=== PATIENT | male | born 1940 | race Caucasian/White ===

== ENCOUNTER 2018-01-07 10:55 | Inpatient (IN) ==
[2018-01-07 11:56] LABS: Basophils # 0.1 10*3/uL (0.0-0.2); Basophils % 0.4 % (0.0-0.8); Eosinophils % 0.2 % (0.00-10.9); Hematocrit 40.5 VOL% (42.0-52.0); Hemoglobin 13.5 GM/DL (14.0-18.0); Immature Granulocytes % 4.6 %; Immature Granulocytes Absolute 0.55 #; Lymphocytes # 0.5 10*3/uL (1.4-4.0); Lymphocytes % 4.1 % (21.2-54.2); Mean Corpuscular HGB Conc 33.3 GM/DL (32-36); Mean Corpuscular Hemoglobin 32 PG (27-34); Mean Corpuscular Volume 95.1 FL (87-102); Mean Platelet Volume 10.3 FL (9.6-12.0); Monocytes # 0.9 10*3/uL (0.11-0.8); Monocytes % 7.4 % (1.7-12.7); Neutrophils # 10.1 10*3/uL (1.4-7.4); Neutrophils % 83.3 % (38.7-73.9); Platelet Count 139 T/CUMM (130-400); Red Blood Count 4.26 MC/CUMM (3.8-5.5); Red Cell Distribution Width 14.1 % (9.3-17.3); White Blood Count 12.1 T/CUMM (4-12)
[2018-01-07 12:37] LABS: Calcium 8.4 MG/DL (8.5-10.1); Potassium 3.4 MMOL/L (3.5-5.1); Uric Acid 8.5 MG/DL (3.5-7.2)
[2018-01-07 12:43] LABS: Band Neutrophils 1 % (0-10); Hypochromasia 1+; Lymphocytes 3 % (20-55); Platelet Estimate Adequate; Segmented Neutrophils 91 % (50-85); Total Cells Counted 100
[2018-01-07] MEDS ORDERED: ONDANSETRON 4 MG/2 ML VIAL IV PRN (12:56)
[2018-01-07] MEDS ORDERED: ACETAMINOPHEN 325 MG TABLET PO PRN (12:56)
[2018-01-07] MEDS ORDERED: NITROGLYCERIN SL 0.4 MG TABLET SL PRN (13:02)
[2018-01-07] MEDS ORDERED: VANCOMYCIN INJ 1,000 MG in SODIUM CHLORIDE 0.9% 250 ML IV STA (13:05)
[2018-01-07] MEDS: ENOXAPARIN 40 MG/0.4 ML SYRINGE SUBCUT SCH (13:56)
[2018-01-07] MEDS: LACTATED RINGERS 1,000 ML IV SCH ×2 (14:15→16:03)
[2018-01-07] MEDS ORDERED: SEVOFLURANE 1 UNIT/15 MINUTE INH ONE (15:23)
[2018-01-07] MEDS ORDERED: DEXAMETHASONE 10 MG/1 ML VIAL ONE (15:23)
[2018-01-07] MEDS ORDERED: fentaNYL 100 MCG/2 ML VIAL ONE (15:23)
[2018-01-07] MEDS ORDERED: NEOSTIGMINE 10 MG/10 ML VIAL ONE (15:24)
[2018-01-07] MEDS ORDERED: GLYCOPYRROLATE 0.4 MG/2 ML VIAL ONE (15:24)
[2018-01-07] MEDS ORDERED: ONDANSETRON 4 MG/2 ML VIAL ONE (15:24)
[2018-01-07] MEDS ORDERED: KETOROLAC 30 MG/1 ML VIAL ONE (15:24)
[2018-01-07] MEDS ORDERED: PHENYLEPHRINE 1 MG/10 ML SYRINGE IV ONE (15:24)
[2018-01-07] MEDS ORDERED: LACTATED RINGERS 1,000 ML IV ONE (15:24)
[2018-01-07] MEDS ORDERED: ROCURONIUM 100 MG/10 ML VIAL IV ONE (15:24)
[2018-01-07] MEDS ORDERED: PROPOFOL 200 MG/20 ML VIAL IV ONE (15:25)
[2018-01-07] MEDS: predniSONE 10 MG TABLET PO SCH (20:28)
[2018-01-07] MEDS: TAMSULOSIN 0.4 MG CAPSULE PO SCH (20:28)
[2018-01-07] MEDS: PRAVASTATIN 20 MG TABLET PO SCH (20:29)
[2018-01-07] MEDS: POTASSIUM CHLORIDE 10 MEQ TABLET PO SCH (20:29)
[2018-01-07] MEDS: LOSARTAN 50 MG TABLET PO SCH (20:29)
[2018-01-07] MEDS: METOPROLOL SUCCINATE XL 25 MG TABLET PO SCH (20:30)
[2018-01-07] MEDS: amLODIPine 2.5 MG TABLET PO SCH (20:30)
[2018-01-07] MEDS: DOCUSATE SODIUM 100 MG CAPSULE PO SCH (20:30)
[2018-01-07] MEDS: ISOSORBIDE MONONITRATE 30 MG TABLET PO SCH (20:31)
[2018-01-08] MEDS: SODIUM CHLORIDE 0.45% 1,000 ML IV SCH ×2 (01:07→18:42)
[2018-01-08] MEDS: VANCOMYCIN INJ 1,500 MG in SODIUM CHLORIDE 0.9% 500 ML IV SCH ×2 (01:30→13:37)
[2018-01-08 06:10] LABS: Basophils % 0.3 % (0.0-0.8); Hemoglobin 11.9 GM/DL (14.0-18.0); Immature Granulocytes Absolute 0.33 #; Lymphocytes # 0.4 10*3/uL (1.4-4.0); Lymphocytes % 3.8 % (21.2-54.2); Mean Corpuscular Hemoglobin 32 PG (27-34); Mean Corpuscular Volume 93.1 FL (87-102); Mean Platelet Volume 11.1 FL (9.6-12.0); Monocytes # 0.5 10*3/uL (0.11-0.8); Monocytes % 4.6 % (1.7-12.7); Neutrophils # 9.6 10*3/uL (1.4-7.4); Neutrophils % 88.3 % (38.7-73.9); Platelet Count 138 T/CUMM (130-400); Red Blood Count 3.76 MC/CUMM (3.8-5.5); Red Cell Distribution Width 14.2 % (9.3-17.3); White Blood Count 10.9 T/CUMM (4-12)
[2018-01-08] MEDS: SPIRONOLACTONE 25 MG TABLET PO SCH (10:11)
[2018-01-08] MEDS: MONTELUKAST 10 MG TABLET PO SCH (10:11)
[2018-01-08] MEDS: ASPIRIN EC 81 MG TABLET PO SCH (10:11)
[2018-01-08] MEDS: BUMETANIDE 1 MG TABLET PO SCH (10:11)
[2018-01-08] MEDS: DOCUSATE SODIUM 100 MG CAPSULE PO SCH ×2 (10:11→21:27)
[2018-01-08] MEDS: POTASSIUM CHLORIDE 10 MEQ TABLET PO SCH ×2 (10:11→21:27)
[2018-01-08] MEDS: PANTOPRAZOLE 40 MG TABLET PO SCH (10:11)
[2018-01-08] MEDS: ENOXAPARIN 40 MG/0.4 ML SYRINGE SUBCUT SCH (13:36)
[2018-01-08] MEDS: METOPROLOL SUCCINATE XL 25 MG TABLET PO SCH (21:26)
[2018-01-08] MEDS: amLODIPine 2.5 MG TABLET PO SCH (21:27)
[2018-01-08] MEDS: predniSONE 10 MG TABLET PO SCH (21:27)
[2018-01-08] MEDS: ZALEPLON 5 MG CAPSULE PO PRN (21:27)
[2018-01-08] MEDS: TAMSULOSIN 0.4 MG CAPSULE PO SCH (21:27)
[2018-01-08] MEDS: PRAVASTATIN 20 MG TABLET PO SCH (21:27)
[2018-01-08] MEDS: LOSARTAN 50 MG TABLET PO SCH (21:27)
[2018-01-08] MEDS: ISOSORBIDE MONONITRATE 30 MG TABLET PO SCH (21:27)
[2018-01-09] MEDS: VANCOMYCIN INJ 1,500 MG in SODIUM CHLORIDE 0.9% 500 ML IV SCH ×2 (02:10→14:17)
[2018-01-09 05:47] LABS: Basophils % 0.2 % (0.0-0.8); Eosinophils % 0.2 % (0.00-10.9); Hematocrit 34.8 VOL% (42.0-52.0); Hemoglobin 11.5 GM/DL (14.0-18.0); Immature Granulocytes % 3.2 %; Immature Granulocytes Absolute 0.37 #; Lymphocytes # 0.9 10*3/uL (1.4-4.0); Lymphocytes % 7.6 % (21.2-54.2); Mean Corpuscular Hemoglobin 32 PG (27-34); Mean Corpuscular Volume 96.1 FL (87-102); Monocytes # 0.9 10*3/uL (0.11-0.8); Monocytes % 7.5 % (1.7-12.7); Neutrophils # 9.3 10*3/uL (1.4-7.4); Neutrophils % 81.3 % (38.7-73.9); Platelet Count 119 T/CUMM (130-400); Red Blood Count 3.62 MC/CUMM (3.8-5.5); Red Cell Distribution Width 13.9 % (9.3-17.3); White Blood Count 11.4 T/CUMM (4-12)
[2018-01-09 06:07] LABS: Albumin 2.7 G/DL (3.4-5.0); Bilirubin,Total 1.1 MG/DL (0.2-1.0); Osmolality,Calculated 281.7 MOS/KG (273-304); Potassium 4.4 MMOL/L (3.5-5.1); Total Protein 5.5 G/DL (6.4-8.3)
[2018-01-09] MEDS: SODIUM CHLORIDE 0.45% 1,000 ML IV SCH ×2 (08:05→14:23)
[2018-01-09] MEDS: SPIRONOLACTONE 25 MG TABLET PO SCH (09:58)
[2018-01-09] MEDS: ASPIRIN EC 81 MG TABLET PO SCH (09:58)
[2018-01-09] MEDS: POTASSIUM CHLORIDE 10 MEQ TABLET PO SCH ×2 (09:58→21:28)
[2018-01-09] MEDS: PANTOPRAZOLE 40 MG TABLET PO SCH (09:58)
[2018-01-09] MEDS: MONTELUKAST 10 MG TABLET PO SCH (09:58)
[2018-01-09] MEDS: BUMETANIDE 1 MG TABLET PO SCH (09:58)
[2018-01-09] MEDS: DOCUSATE SODIUM 100 MG CAPSULE PO SCH ×2 (09:58→21:25)
[2018-01-09] MEDS ORDERED: VANCOMYCIN INJ 1,500 MG in SODIUM CHLORIDE 0.9% 500 ML IV SCH (20:00)
[2018-01-09] MEDS: ENOXAPARIN 40 MG/0.4 ML SYRINGE SUBCUT SCH (21:24)
[2018-01-09] MEDS: METOPROLOL SUCCINATE XL 25 MG TABLET PO SCH (21:25)
[2018-01-09] MEDS: amLODIPine 2.5 MG TABLET PO SCH (21:25)
[2018-01-09] MEDS: ISOSORBIDE MONONITRATE 30 MG TABLET PO SCH (21:25)
[2018-01-09] MEDS: predniSONE 10 MG TABLET PO SCH (21:25)
[2018-01-09] MEDS: TAMSULOSIN 0.4 MG CAPSULE PO SCH (21:25)
[2018-01-09] MEDS: PRAVASTATIN 20 MG TABLET PO SCH (21:25)
[2018-01-09] MEDS: LOSARTAN 50 MG TABLET PO SCH (21:28)
[2018-01-09] MEDS: ZALEPLON 5 MG CAPSULE PO PRN (21:32)
[2018-01-10] MEDS: SODIUM CHLORIDE 0.45% 1,000 ML IV SCH (06:15)
[2018-01-10 08:12] VITALS: BP 114/73
[2018-01-10] MEDS: DOCUSATE SODIUM 100 MG CAPSULE PO SCH (08:31)
[2018-01-10] MEDS: PANTOPRAZOLE 40 MG TABLET PO SCH (08:31)
[2018-01-10] MEDS: MONTELUKAST 10 MG TABLET PO SCH (08:31)
[2018-01-10] MEDS: SPIRONOLACTONE 25 MG TABLET PO SCH (08:32)
[2018-01-10] MEDS: ASPIRIN EC 81 MG TABLET PO SCH (08:32)
[2018-01-10] MEDS: POTASSIUM CHLORIDE 10 MEQ TABLET PO SCH (08:32)
[2018-01-10] MEDS: BUMETANIDE 1 MG TABLET PO SCH (08:33)
[2018-01-10 09:20] LABS: Apearance,Urine CLEAR (Clear); Bilirubin,Urine Negative (Negative); Blood, Urine Negative (Negative); Glucose,Urine (UA) Negative (Negative); Ketones,Urine Negative (Negative); Nitrite,Urine Negative (Negative); Protein,Urine Negative; Urine Color Yellow (Yellow); Urine Specific Gravity 1.013 (1.001-1.035); Urine Urobilinogen < 2.0 EU/DL (0.2-1.0); WBC,Urine <1 /HPF (0-6)
== END 2018-01-10 09:45 | disposition home or self-care (01) | DRG 514 ==
LOC: N.ED 10:55 → N.EDINP 12:56 → N.2E 15:50
PROVIDERS: ADMIT Family Medicine; ATTEND Family Medicine

== ENCOUNTER 2018-02-17 08:37 | Inpatient (IN) ==
[2018-02-17 09:56] LABS: Basophils # 0.1 10*3/uL (0.0-0.2); Basophils % 0.5 % (0.0-0.8); Eosinophils # 0.1 10*3/uL (0.0-0.87); Eosinophils % 0.6 % (0.00-10.9); Hematocrit 39.4 VOL% (42.0-52.0); Hemoglobin 13.2 GM/DL (14.0-18.0); Immature Granulocytes % 2.9 %; Lymphocytes # 0.5 10*3/uL (1.4-4.0); Lymphocytes % 4.8 % (21.2-54.2); Mean Corpuscular HGB Conc 33.5 GM/DL (32-36); Mean Corpuscular Hemoglobin 31 PG (27-34); Mean Corpuscular Volume 93.8 FL (87-102); Mean Platelet Volume 10.3 FL (9.6-12.0); Monocytes # 0.7 10*3/uL (0.11-0.8); Monocytes % 6.3 % (1.7-12.7); Neutrophils # 8.9 10*3/uL (1.4-7.4); Neutrophils % 84.9 % (38.7-73.9); Platelet Count 111 T/CUMM (130-400); Red Cell Distribution Width 15.2 % (9.3-17.3); White Blood Count 10.5 T/CUMM (4-12)
[2018-02-17 10:15] LABS: Band Neutrophils 3 % (0-10); Hypochromasia 1+; Lymphocytes 7 % (20-55); Platelet Estimate Decreased; Segmented Neutrophils 82 % (50-85); Total Cells Counted 100
[2018-02-17 10:33] LABS: Alanine Aminotransferase 19 U/L (16-61); Albumin 3.3 G/DL (3.4-5.0); Alkaline Phosphatase 52 U/L (45-117); Aspartate Amino Transferase 11 U/L (0-37); Blood Urea Nitrogen 21 MG/DL (7-18); Calcium 8.5 MG/DL (8.5-10.1); Glucose 129 MG/DL (74-106); Potassium 3.4 MMOL/L (3.5-5.1); Sodium 136 MMOL/L (136-145); Total Protein 6.5 G/DL (6.4-8.3)
[2018-02-17 10:36] LABS: Lactic Acid 2.3 MMOL/L (0.4-2.0)
[2018-02-17] MEDS ORDERED: oxyCODONE/ACETAMINOPHEN 5-325 MG TABLET PO STA (10:43)
[2018-02-17] MEDS ORDERED: ACETAMINOPHEN 325 MG TABLET PO PRN (11:07)
[2018-02-17] MEDS ORDERED: VANCOMYCIN INJ 1,500 MG in SODIUM CHLORIDE 0.9% 500 ML IV STA (11:07)
[2018-02-17] MEDS ORDERED: DEXTROSE 50% 25 GM/50 ML VIAL IV PRN (11:07)
[2018-02-17] MEDS ORDERED: GLUCAGON 1 MG VIAL IM PRN (11:07)
[2018-02-17 11:09] LABS: Sedimentation Rate-Westergren 46 MM/HR (0-20)
[2018-02-17] MEDS ORDERED: VANCOMYCIN 1,000 MG VIAL ONE (11:17)
[2018-02-17] MEDS ORDERED: NITROGLYCERIN SL 0.4 MG TABLET SL PRN (14:38)
[2018-02-17] MEDS: SODIUM CHLORIDE 0.45% 1,000 ML IV SCH ×2 (15:18→20:28)
[2018-02-17] MEDS: oxyCODONE/ACETAMINOPHEN 5-325 MG TABLET PO PRN (15:23)
[2018-02-17] MEDS: ONDANSETRON 4 MG/2 ML VIAL IV PRN (15:24)
[2018-02-17 16:27] LABS: Lactic Acid 2.3 MMOL/L (0.4-2.0)
[2018-02-17] MEDS: predniSONE 10 MG TABLET PO SCH (20:27)
[2018-02-17] MEDS: amLODIPine 2.5 MG TABLET PO SCH (20:28)
[2018-02-17] MEDS: ENOXAPARIN 40 MG/0.4 ML SYRINGE SUBCUT SCH (20:28)
[2018-02-17] MEDS: LOSARTAN 50 MG TABLET PO SCH (20:28)
[2018-02-17] MEDS: METOPROLOL SUCCINATE XL 25 MG TABLET PO SCH (20:28)
[2018-02-17] MEDS: ISOSORBIDE MONONITRATE 30 MG TABLET PO SCH (20:28)
[2018-02-17] MEDS: PRAVASTATIN 20 MG TABLET PO SCH (20:28)
[2018-02-17] MEDS: TAMSULOSIN 0.4 MG CAPSULE PO SCH (20:28)
[2018-02-17] MEDS: DOCUSATE SODIUM 100 MG CAPSULE PO SCH (20:28)
[2018-02-17] MEDS: POTASSIUM CHLORIDE 20 MEQ PACK PO SCH (20:28)
[2018-02-18] MEDS: SODIUM CHLORIDE 0.45% 1,000 ML IV SCH ×2 (07:16→19:00)
[2018-02-18 07:49] LABS: Calcium 7.8 MG/DL (8.5-10.1); Osmolality,Calculated 274.1 MOS/KG (273-304); Potassium 3.9 MMOL/L (3.5-5.1)
[2018-02-18] MEDS: ASPIRIN EC 81 MG TABLET PO SCH (08:51)
[2018-02-18] MEDS: BUMETANIDE 1 MG TABLET PO SCH (08:51)
[2018-02-18] MEDS: POTASSIUM CHLORIDE 20 MEQ PACK PO SCH ×2 (08:51→20:24)
[2018-02-18] MEDS: PANTOPRAZOLE 40 MG TABLET PO SCH (08:51)
[2018-02-18] MEDS: MONTELUKAST 10 MG TABLET PO SCH (08:51)
[2018-02-18] MEDS: SPIRONOLACTONE 25 MG TABLET PO SCH (08:51)
[2018-02-18] MEDS: DOCUSATE SODIUM 100 MG CAPSULE PO SCH ×2 (08:51→20:24)
[2018-02-18] MEDS ORDERED: LOSARTAN 50 MG TABLET PO SCH (09:00)
[2018-02-18] MEDS: VANCOMYCIN INJ 1,500 MG in SODIUM CHLORIDE 0.9% 500 ML IV SCH (11:40)
[2018-02-18] MEDS ORDERED: ACETAMINOPHEN/CODEINE 300-30 MG TABLET PO PRN (13:05)
[2018-02-18] MEDS: GENTAMICIN INJ 140 MG in SODIUM CHLORIDE 0.9% 100 ML IV SCH (13:51)
[2018-02-18] MEDS: ENOXAPARIN 40 MG/0.4 ML SYRINGE SUBCUT SCH (20:24)
[2018-02-18] MEDS: METOPROLOL SUCCINATE XL 25 MG TABLET PO SCH (20:24)
[2018-02-18] MEDS: amLODIPine 2.5 MG TABLET PO SCH (20:24)
[2018-02-18] MEDS: ISOSORBIDE MONONITRATE 30 MG TABLET PO SCH (20:24)
[2018-02-18] MEDS: LOSARTAN 50 MG TABLET PO SCH (20:24)
[2018-02-18] MEDS: PRAVASTATIN 20 MG TABLET PO SCH (20:24)
[2018-02-18] MEDS: TAMSULOSIN 0.4 MG CAPSULE PO SCH (20:24)
[2018-02-18] MEDS: predniSONE 10 MG TABLET PO SCH (20:24)
[2018-02-18] MEDS: oxyCODONE/ACETAMINOPHEN 5-325 MG TABLET PO PRN (21:40)
[2018-02-18] MEDS: ONDANSETRON 4 MG/2 ML VIAL IV PRN (21:43)
[2018-02-19 07:00] LABS: Basophils % 0.5 % (0.0-0.8); Eosinophils # 0.1 10*3/uL (0.0-0.87); Eosinophils % 1.1 % (0.00-10.9); Hematocrit 32.6 VOL% (42.0-52.0); Hemoglobin 10.8 GM/DL (14.0-18.0); Immature Granulocytes % 3.8 %; Immature Granulocytes Absolute 0.24 #; Lymphocytes # 0.4 10*3/uL (1.4-4.0); Lymphocytes % 5.8 % (21.2-54.2); Mean Corpuscular HGB Conc 33.1 GM/DL (32-36); Mean Corpuscular Hemoglobin 30 PG (27-34); Mean Corpuscular Volume 91.8 FL (87-102); Mean Platelet Volume 10.6 FL (9.6-12.0); Monocytes # 0.5 10*3/uL (0.11-0.8); Monocytes % 8.4 % (1.7-12.7); Neutrophils # 5.2 10*3/uL (1.4-7.4); Neutrophils % 80.4 % (38.7-73.9); Platelet Count 100 T/CUMM (130-400); Red Blood Count 3.55 MC/CUMM (3.8-5.5); Red Cell Distribution Width 15.1 % (9.3-17.3); White Blood Count 6.4 T/CUMM (4-12)
[2018-02-19 07:18] LABS: Calcium 7.9 MG/DL (8.5-10.1); Potassium 3.8 MMOL/L (3.5-5.1)
[2018-02-19] MEDS: PROBENECID 500 MG TABLET PO SCH (08:34)
[2018-02-19] MEDS: SPIRONOLACTONE 25 MG TABLET PO SCH (08:34)
[2018-02-19] MEDS: BUMETANIDE 1 MG TABLET PO SCH (08:34)
[2018-02-19] MEDS: FLUTICASONE 50 MCG NASAL SPRAY 16 GM BOTTLE BOTH NARES SCH (08:34)
[2018-02-19] MEDS: ASPIRIN EC 81 MG TABLET PO SCH (08:34)
[2018-02-19] MEDS: MONTELUKAST 10 MG TABLET PO SCH (08:34)
[2018-02-19] MEDS: DOCUSATE SODIUM 100 MG CAPSULE PO SCH ×2 (08:34→21:35)
[2018-02-19] MEDS: POTASSIUM CHLORIDE 20 MEQ PACK PO SCH ×2 (08:34→21:36)
[2018-02-19] MEDS: PANTOPRAZOLE 40 MG TABLET PO SCH (08:34)
[2018-02-19] MEDS: SODIUM CHLORIDE 0.45% 1,000 ML IV SCH ×2 (10:46→21:37)
[2018-02-19] MEDS: VANCOMYCIN INJ 1,500 MG in SODIUM CHLORIDE 0.9% 500 ML IV SCH (12:58)
[2018-02-19] MEDS: GENTAMICIN INJ 140 MG in SODIUM CHLORIDE 0.9% 100 ML IV SCH (15:33)
[2018-02-19] MEDS: oxyCODONE/ACETAMINOPHEN 5-325 MG TABLET PO PRN ×2 (17:04→21:35)
[2018-02-19] MEDS: LOSARTAN 50 MG TABLET PO SCH (21:35)
[2018-02-19] MEDS: predniSONE 10 MG TABLET PO SCH (21:35)
[2018-02-19] MEDS: ISOSORBIDE MONONITRATE 30 MG TABLET PO SCH (21:35)
[2018-02-19] MEDS: amLODIPine 2.5 MG TABLET PO SCH (21:35)
[2018-02-19] MEDS: METOPROLOL SUCCINATE XL 25 MG TABLET PO SCH (21:35)
[2018-02-19] MEDS: TAMSULOSIN 0.4 MG CAPSULE PO SCH (21:35)
[2018-02-19] MEDS: ENOXAPARIN 40 MG/0.4 ML SYRINGE SUBCUT SCH (21:36)
[2018-02-19] MEDS: PRAVASTATIN 20 MG TABLET PO SCH (21:37)
[2018-02-20] MEDS: VANCOMYCIN INJ 1,500 MG in SODIUM CHLORIDE 0.9% 500 ML IV SCH ×2 (01:35→20:09)
[2018-02-20] MEDS: SODIUM CHLORIDE 0.45% 1,000 ML IV SCH ×2 (09:01→17:45)
[2018-02-20] MEDS: SPIRONOLACTONE 25 MG TABLET PO SCH (09:05)
[2018-02-20] MEDS: PROBENECID 500 MG TABLET PO SCH (09:05)
[2018-02-20] MEDS: PANTOPRAZOLE 40 MG TABLET PO SCH (09:06)
[2018-02-20] MEDS: ASPIRIN EC 81 MG TABLET PO SCH (09:06)
[2018-02-20] MEDS: POTASSIUM CHLORIDE 20 MEQ PACK PO SCH ×2 (09:06→21:00)
[2018-02-20] MEDS: BUMETANIDE 1 MG TABLET PO SCH (09:06)
[2018-02-20] MEDS: DOCUSATE SODIUM 100 MG CAPSULE PO SCH ×2 (09:06→21:00)
[2018-02-20] MEDS: FLUTICASONE 50 MCG NASAL SPRAY 16 GM BOTTLE BOTH NARES SCH (09:13)
[2018-02-20] MEDS: MONTELUKAST 10 MG TABLET PO SCH (10:29)
[2018-02-20] MEDS: AMPICILLIN INJ 2,000 MG in SODIUM CHLORIDE 0.9% 100 ML IV SCH (15:49)
[2018-02-20] MEDS: GENTAMICIN INJ 140 MG in SODIUM CHLORIDE 0.9% 100 ML IV SCH (17:44)
[2018-02-20] MEDS: METOPROLOL SUCCINATE XL 25 MG TABLET PO SCH (21:00)
[2018-02-20] MEDS: LOSARTAN 50 MG TABLET PO SCH (21:00)
[2018-02-20] MEDS: TAMSULOSIN 0.4 MG CAPSULE PO SCH (21:00)
[2018-02-20] MEDS: oxyCODONE/ACETAMINOPHEN 5-325 MG TABLET PO PRN (21:01)
[2018-02-20] MEDS: amLODIPine 2.5 MG TABLET PO SCH (21:01)
[2018-02-20] MEDS: predniSONE 10 MG TABLET PO SCH (21:01)
[2018-02-20] MEDS: PRAVASTATIN 20 MG TABLET PO SCH (21:01)
[2018-02-20] MEDS: ISOSORBIDE MONONITRATE 30 MG TABLET PO SCH (21:01)
[2018-02-20] MEDS: ENOXAPARIN 40 MG/0.4 ML SYRINGE SUBCUT SCH (21:02)
[2018-02-21] MEDS: SODIUM CHLORIDE 0.45% 1,000 ML IV SCH ×2 (02:52→18:32)
[2018-02-21] MEDS: AMPICILLIN INJ 2,000 MG in SODIUM CHLORIDE 0.9% 100 ML IV SCH (02:53)
[2018-02-21] MEDS ORDERED: hydrOXYzine HCL 25 MG TABLET PO PRN (05:42)
[2018-02-21] MEDS: BUMETANIDE 1 MG TABLET PO SCH (09:19)
[2018-02-21] MEDS: PANTOPRAZOLE 40 MG TABLET PO SCH (09:20)
[2018-02-21] MEDS: SPIRONOLACTONE 25 MG TABLET PO SCH (09:20)
[2018-02-21] MEDS: ASPIRIN EC 81 MG TABLET PO SCH (09:20)
[2018-02-21] MEDS: POTASSIUM CHLORIDE 20 MEQ PACK PO SCH ×2 (09:20→20:58)
[2018-02-21] MEDS: DOCUSATE SODIUM 100 MG CAPSULE PO SCH ×2 (09:20→21:00)
[2018-02-21] MEDS: PROBENECID 500 MG TABLET PO SCH (09:20)
[2018-02-21] MEDS: FLUTICASONE 50 MCG NASAL SPRAY 16 GM BOTTLE BOTH NARES SCH (09:21)
[2018-02-21] MEDS: POLYETHYLENE GLYCOL POWDER 17 GM PACK PO SCH (09:28)
[2018-02-21] MEDS: MONTELUKAST 10 MG TABLET PO SCH (10:10)
[2018-02-21] MEDS: VANCOMYCIN INJ 1,500 MG in SODIUM CHLORIDE 0.9% 500 ML IV SCH (13:18)
[2018-02-21 16:49] LABS: Calcium 8.8 MG/DL (8.5-10.1); Osmolality,Calculated 276.7 MOS/KG (273-304); Potassium 3.3 MMOL/L (3.5-5.1)
[2018-02-21] MEDS ORDERED: POTASSIUM CHLORIDE 20 MEQ TABLET PO ONE (17:52)
[2018-02-21] MEDS: GENTAMICIN INJ 140 MG in SODIUM CHLORIDE 0.9% 100 ML IV SCH (18:30)
[2018-02-21] MEDS: ENOXAPARIN 40 MG/0.4 ML SYRINGE SUBCUT SCH (20:58)
[2018-02-21] MEDS: METOPROLOL SUCCINATE XL 25 MG TABLET PO SCH (20:59)
[2018-02-21] MEDS: TAMSULOSIN 0.4 MG CAPSULE PO SCH (20:59)
[2018-02-21] MEDS: ISOSORBIDE MONONITRATE 30 MG TABLET PO SCH (20:59)
[2018-02-21] MEDS: PRAVASTATIN 20 MG TABLET PO SCH (21:00)
[2018-02-21] MEDS: LOSARTAN 50 MG TABLET PO SCH (21:00)
[2018-02-21] MEDS: amLODIPine 2.5 MG TABLET PO SCH (21:00)
[2018-02-21] MEDS: predniSONE 10 MG TABLET PO SCH (21:07)
[2018-02-22 07:08] LABS: Calcium 8.2 MG/DL (8.5-10.1); Osmolality,Calculated 285.3 MOS/KG (273-304); Potassium 3.9 MMOL/L (3.5-5.1)
[2018-02-22 07:23] VITALS: BP 113/77
[2018-02-22] MEDS: VANCOMYCIN INJ 1,500 MG in SODIUM CHLORIDE 0.9% 500 ML IV SCH (07:34)
[2018-02-22] MEDS: POLYETHYLENE GLYCOL POWDER 17 GM PACK PO SCH (09:01)
[2018-02-22] MEDS: POTASSIUM CHLORIDE 20 MEQ PACK PO SCH (09:01)
[2018-02-22] MEDS: PANTOPRAZOLE 40 MG TABLET PO SCH (09:02)
[2018-02-22] MEDS: MONTELUKAST 10 MG TABLET PO SCH (09:02)
[2018-02-22] MEDS: SPIRONOLACTONE 25 MG TABLET PO SCH (09:02)
[2018-02-22] MEDS: PROBENECID 500 MG TABLET PO SCH (09:02)
[2018-02-22] MEDS: BUMETANIDE 1 MG TABLET PO SCH (09:02)
[2018-02-22] MEDS: DOCUSATE SODIUM 100 MG CAPSULE PO SCH (09:02)
[2018-02-22] MEDS: ASPIRIN EC 81 MG TABLET PO SCH (09:02)
[2018-02-22] MEDS: FLUTICASONE 50 MCG NASAL SPRAY 16 GM BOTTLE BOTH NARES SCH (09:14)
[2018-02-22] MEDS: SODIUM CHLORIDE 0.45% 1,000 ML IV SCH ×2 (10:03→11:42)
[2018-02-23] MEDS ORDERED: VANCOMYCIN INJ 1,500 MG in SODIUM CHLORIDE 0.9% 500 ML IV SCH (08:00)
== END 2018-02-22 12:05 | disposition home health service (06) | DRG 872 ==
LOC: N.ED 08:37 → N.EDINP 11:07 → N.5E 14:05
PROVIDERS: ADMIT Family Medicine; ATTEND Family Medicine

== ENCOUNTER 2018-03-11 16:25 | Inpatient (IN) ==
[2018-03-11] MEDS ORDERED: SODIUM CHLORIDE 0.9% 1,000 ML IV STA (17:02)
[2018-03-11 17:53] LABS: Basophils # 0.1 10*3/uL (0.0-0.2); Basophils % 0.6 % (0.0-0.8); Eosinophils # 0.1 10*3/uL (0.0-0.87); Eosinophils % 0.7 % (0.00-10.9); Hematocrit 34.8 VOL% (42.0-52.0); Hemoglobin 11.4 GM/DL (14.0-18.0); Immature Granulocytes % 1.3 %; Immature Granulocytes Absolute 0.11 #; Lymphocytes # 0.5 10*3/uL (1.4-4.0); Mean Corpuscular HGB Conc 32.8 GM/DL (32-36); Mean Corpuscular Hemoglobin 31 PG (27-34); Mean Corpuscular Volume 94.3 FL (87-102); Mean Platelet Volume 10.4 FL (9.6-12.0); Monocytes # 0.8 10*3/uL (0.11-0.8); Monocytes % 8.9 % (1.7-12.7); Neutrophils # 7.1 10*3/uL (1.4-7.4); Neutrophils % 82.5 % (38.7-73.9); Platelet Count 95 T/CUMM (130-400); Red Blood Count 3.69 MC/CUMM (3.8-5.5); Red Cell Distribution Width 14.6 % (9.3-17.3); White Blood Count 8.6 T/CUMM (4-12)
[2018-03-11 18:16] LABS: Albumin 3.1 G/DL (3.4-5.0); Bilirubin,Total 1.5 MG/DL (0.2-1.0); Calcium 8.2 MG/DL (8.5-10.1); Lactic Acid 1.8 MMOL/L (0.4-2.0); Osmolality,Calculated 278.5 MOS/KG (273-304); Potassium 3.4 MMOL/L (3.5-5.1); Total Protein 5.9 G/DL (6.4-8.3)
[2018-03-11 18:54] LABS: Hypochromasia 1+; Ovalocytes Few
[2018-03-11 18:55] LABS: Platelet Estimate Decreased
[2018-03-11] MEDS ORDERED: ACETAMINOPHEN 500 MG TABLET PO STA (19:00)
[2018-03-11 19:31] LABS: Apearance,Urine CLEAR (Clear); Bilirubin,Urine Negative (Negative); Blood, Urine Negative (Negative); Glucose,Urine (UA) Negative (Negative); Hyaline Casts,Urine 3 /LPF (0-3); Ketones,Urine Negative (Negative); Mucus,Urine Occasional /LPF (Occasional); Nitrite,Urine Negative (Negative); Protein,Urine Negative; RBC,Urine 1 /HPF (0-4); Urine Color Straw (Yellow); Urine Specific Gravity 1.006 (1.001-1.035); Urine Urobilinogen < 2.0 EU/DL (0.2-1.0); WBC,Urine <1 /HPF (0-6)
[2018-03-11] MEDS ORDERED: CLINDAMYCIN INJ 300 MG in SODIUM CHLORIDE 0.9% 100 ML IV SCH (21:49)
[2018-03-11] MEDS: CLINDAMYCIN INJ 300 MG in PREMIX 1 EACH IV SCH (21:55)
[2018-03-12] MEDS: ONDANSETRON 4 MG/2 ML VIAL IV PRN ×3 (03:48→17:16)
[2018-03-12] MEDS: CLINDAMYCIN INJ 300 MG in PREMIX 1 EACH IV SCH ×4 (03:49→22:31)
[2018-03-12] MEDS: ACETAMINOPHEN 325 MG TABLET PO PRN (05:25)
[2018-03-12] MEDS ORDERED: POTASSIUM CHLORIDE 20 MEQ TABLET PO ONE ×2 (05:53→09:50)
[2018-03-12 06:35] LABS: Basophils % 0.5 % (0.0-0.8); Eosinophils # 0.1 10*3/uL (0.0-0.87); Eosinophils % 1.3 % (0.00-10.9); Immature Granulocytes % 1.8 %; Lymphocytes # 0.4 10*3/uL (1.4-4.0); Lymphocytes % 7.8 % (21.2-54.2); Mean Corpuscular HGB Conc 33.3 GM/DL (32-36); Mean Corpuscular Hemoglobin 31 PG (27-34); Mean Corpuscular Volume 92.4 FL (87-102); Monocytes # 0.5 10*3/uL (0.11-0.8); Monocytes % 8.9 % (1.7-12.7); NRBC # 0.02 10*3/uL; Neutrophils # 4.4 10*3/uL (1.4-7.4); Neutrophils % 79.7 % (38.7-73.9); Red Blood Count 3.57 MC/CUMM (3.8-5.5); Red Cell Distribution Width 14.8 % (9.3-17.3); White Blood Count 5.5 T/CUMM (4-12)
[2018-03-12 06:39] LABS: Platelet Count 85 T/CUMM (130-400)
[2018-03-12] MEDS: SODIUM CHLORIDE 0.9% 1,000 ML IV SCH ×2 (06:39→21:13)
[2018-03-12 06:55] LABS: Osmolality,Calculated 276.7 MOS/KG (273-304); Potassium 3.4 MMOL/L (3.5-5.1)
[2018-03-12 07:07] LABS: Risk Ratio 2.34; Thyroid Stimulating Hormone 3.76 uIU/ml (0.358-3.74); VLDL CHOLESTEROL 24.2 MG/DL
[2018-03-12] MEDS ORDERED: ACETAMINOPHEN 325 MG TABLET PO SCH (09:00)
[2018-03-12] MEDS ORDERED: CYANOCOBALAMIN 1000 MCG/1 ML VIAL IM ONE (09:51)
[2018-03-12] MEDS ORDERED: NITROGLYCERIN SL 0.4 MG TABLET SL PRN (09:52)
[2018-03-12] MEDS ORDERED: hydrOXYzine HCL 25 MG TABLET PO PRN (09:52)
[2018-03-12] MEDS: FLUTICASONE 50 MCG NASAL SPRAY 16 GM BOTTLE BOTH NARES SCH (11:57)
[2018-03-12] MEDS: SPIRONOLACTONE 25 MG TABLET PO SCH (12:03)
[2018-03-12] MEDS: ASPIRIN EC 81 MG TABLET PO SCH (12:03)
[2018-03-12 13:21] LABS: Anisocytosis 1+; Ovalocytes Few
[2018-03-12 13:22] LABS: Microcytosis 1+; Platelet Estimate Decreased; Polychromasia Slight
[2018-03-12] MEDS ORDERED: PROMETHAZINE 25 MG/1 ML VIAL IM PRN ×2 (14:46→19:13)
[2018-03-12] MEDS ORDERED: POLYETHYLENE GLYCOL POWDER 17 GM PACK PO PRN (14:46)
[2018-03-12] MEDS: TAMSULOSIN 0.4 MG CAPSULE PO SCH (21:09)
[2018-03-12] MEDS: POTASSIUM CHLORIDE 20 MEQ TABLET PO SCH (21:10)
[2018-03-12] MEDS: ISOSORBIDE MONONITRATE 30 MG TABLET PO SCH (21:10)
[2018-03-12] MEDS: METOPROLOL SUCCINATE XL 25 MG TABLET PO SCH (21:10)
[2018-03-12] MEDS: MONTELUKAST 10 MG TABLET PO SCH (21:10)
[2018-03-12] MEDS: ACETAMINOPHEN/CODEINE 300-30 MG TABLET PO PRN ×2 (22:19→22:28)
[2018-03-12] MEDS: methylPREDNISolone SOD SUC 40 MG/1 ML VIAL IV SCH (22:34)
[2018-03-13] MEDS: CLINDAMYCIN INJ 300 MG in PREMIX 1 EACH IV SCH ×2 (04:07→10:11)
[2018-03-13 06:21] LABS: Calcium 7.8 MG/DL (8.5-10.1); Osmolality,Calculated 278.5 MOS/KG (273-304); Potassium 4.7 MMOL/L (3.5-5.1); Uric Acid 8.6 MG/DL (3.5-7.2)
[2018-03-13] MEDS: methylPREDNISolone SOD SUC 40 MG/1 ML VIAL IV SCH ×4 (06:44→23:29)
[2018-03-13] MEDS: LEVOTHYROXINE 25 MCG TABLET PO SCH (06:45)
[2018-03-13] MEDS ORDERED: POTASSIUM CHLORIDE 20 MEQ TABLET PO SCH (09:00)
[2018-03-13] MEDS: BUMETANIDE 1 MG TABLET PO SCH (09:26)
[2018-03-13] MEDS: POTASSIUM CHLORIDE 20 MEQ TABLET PO SCH ×2 (09:26→22:07)
[2018-03-13] MEDS: ASPIRIN EC 81 MG TABLET PO SCH (09:27)
[2018-03-13] MEDS: FLUTICASONE 50 MCG NASAL SPRAY 16 GM BOTTLE BOTH NARES SCH (09:27)
[2018-03-13] MEDS: SPIRONOLACTONE 25 MG TABLET PO SCH (09:30)
[2018-03-13] MEDS ORDERED: POLYETHYLENE GLYCOL POWDER 17 GM PACK PO ONE (14:47)
[2018-03-13] MEDS: SODIUM CHLORIDE 0.9% 1,000 ML IV SCH (16:12)
[2018-03-13] MEDS ORDERED: FUROSEMIDE 40 MG/4 ML VIAL IV ONE (19:31)
[2018-03-13] MEDS ORDERED: ALBUTEROL 2.5 MG/3 ML NEB RESP TX PRN (19:37)
[2018-03-13] MEDS: ACETAMINOPHEN 325 MG TABLET PO PRN (21:09)
[2018-03-13] MEDS: CLINDAMYCIN INJ 600 MG in PREMIX 1 EACH IV SCH (21:58)
[2018-03-13] MEDS: ENOXAPARIN 100 MG/ML SYRINGE SUBCUT SCH (22:05)
[2018-03-13] MEDS: ISOSORBIDE MONONITRATE 30 MG TABLET PO SCH (22:06)
[2018-03-13] MEDS: METOPROLOL SUCCINATE XL 25 MG TABLET PO SCH (22:07)
[2018-03-13] MEDS: MONTELUKAST 10 MG TABLET PO SCH (22:07)
[2018-03-13] MEDS: TAMSULOSIN 0.4 MG CAPSULE PO SCH (22:07)
[2018-03-13 22:09] LABS: Lactic Acid 5.2 MMOL/L (0.4-2.0)
[2018-03-13] MEDS: ACETAMINOPHEN/CODEINE 300-30 MG TABLET PO PRN (23:20)
[2018-03-14 01:08] LABS: Apearance,Urine Slightly Hazy (Clear); Bilirubin,Urine Negative (Negative); Blood, Urine Moderate mg/dL (Negative); Glucose,Urine (UA) Negative (Negative); Hyaline Casts,Urine 5 /LPF (0-3); Ketones,Urine Negative (Negative); Mucus,Urine Occasional /LPF (Occasional); Nitrite,Urine Negative (Negative); Protein,Urine Negative; RBC,Urine <1 /HPF (0-4); Urine Color Yellow (Yellow); Urine Specific Gravity 1.006 (1.001-1.035); Urine Urobilinogen < 2.0 EU/DL (0.2-1.0); WBC,Urine 1 /HPF (0-6)
[2018-03-14] MEDS: ACETAMINOPHEN/CODEINE 300-30 MG TABLET PO PRN (03:14)
[2018-03-14] MEDS: CLINDAMYCIN INJ 600 MG in PREMIX 1 EACH IV SCH ×2 (05:49→13:47)
[2018-03-14] MEDS: LEVOTHYROXINE 25 MCG TABLET PO SCH (05:49)
[2018-03-14] MEDS: SPIRONOLACTONE 25 MG TABLET PO SCH (09:13)
[2018-03-14] MEDS: ASPIRIN EC 81 MG TABLET PO SCH (09:13)
[2018-03-14] MEDS: POTASSIUM CHLORIDE 20 MEQ TABLET PO SCH ×2 (09:13→21:15)
[2018-03-14] MEDS: BUMETANIDE 1 MG TABLET PO SCH (09:13)
[2018-03-14] MEDS: FLUTICASONE 50 MCG NASAL SPRAY 16 GM BOTTLE BOTH NARES SCH (09:13)
[2018-03-14] MEDS: methylPREDNISolone SOD SUC 40 MG/1 ML VIAL IV SCH ×2 (09:13→14:32)
[2018-03-14 09:38] LABS: Calcium 8.3 MG/DL (8.5-10.1); Osmolality,Calculated 276.2 MOS/KG (273-304); Potassium 4.6 MMOL/L (3.5-5.1)
[2018-03-14] MEDS: MEROPENEM 1,000 MG in SODIUM CHLORIDE 0.9% 100 ML IV SCH ×2 (14:31→21:30)
[2018-03-14] MEDS: GENTAMICIN INJ 280 MG in SODIUM CHLORIDE 0.9% 100 ML IV SCH (15:28)
[2018-03-14] MEDS ORDERED: ALBUTEROL 2.5 MG/3 ML NEB RESP TX SCH (19:28)
[2018-03-14] MEDS: MONTELUKAST 10 MG TABLET PO SCH (21:15)
[2018-03-14] MEDS: METOPROLOL SUCCINATE XL 25 MG TABLET PO SCH (21:15)
[2018-03-14] MEDS: ISOSORBIDE MONONITRATE 30 MG TABLET PO SCH (21:15)
[2018-03-14] MEDS: PRAVASTATIN 20 MG TABLET PO SCH (21:15)
[2018-03-14] MEDS: TAMSULOSIN 0.4 MG CAPSULE PO SCH (21:15)
[2018-03-14] MEDS: ENOXAPARIN 100 MG/ML SYRINGE SUBCUT SCH (21:39)
[2018-03-15] MEDS: methylPREDNISolone SOD SUC 40 MG/1 ML VIAL IV SCH ×4 (00:07→22:38)
[2018-03-15 04:57] LABS: Basophils % 0.1 % (0.0-0.8); Hematocrit 31.6 VOL% (42.0-52.0); Hemoglobin 10.7 GM/DL (14.0-18.0); Immature Granulocytes % 1.5 %; Immature Granulocytes Absolute 0.13 #; Lymphocytes # 0.4 10*3/uL (1.4-4.0); Lymphocytes % 5.2 % (21.2-54.2); Mean Corpuscular HGB Conc 33.9 GM/DL (32-36); Mean Corpuscular Hemoglobin 31 PG (27-34); Mean Corpuscular Volume 92.7 FL (87-102); Mean Platelet Volume 11.9 FL (9.6-12.0); Monocytes # 0.4 10*3/uL (0.11-0.8); Monocytes % 4.8 % (1.7-12.7); Neutrophils # 7.5 10*3/uL (1.4-7.4); Neutrophils % 88.4 % (38.7-73.9); Platelet Count 89 T/CUMM (130-400); Red Blood Count 3.41 MC/CUMM (3.8-5.5); Red Cell Distribution Width 14.4 % (9.3-17.3); White Blood Count 8.5 T/CUMM (4-12)
[2018-03-15 05:20] LABS: Calcium 7.8 MG/DL (8.5-10.1); Potassium 4.6 MMOL/L (3.5-5.1)
[2018-03-15 05:21] LABS: Hypochromasia 1+; Ovalocytes Slight; Platelet Estimate Decreased
[2018-03-15 05:22] LABS: Microcytosis 1+
[2018-03-15] MEDS: LEVOTHYROXINE 25 MCG TABLET PO SCH (05:46)
[2018-03-15] MEDS: MEROPENEM 1,000 MG in SODIUM CHLORIDE 0.9% 100 ML IV SCH ×3 (05:46→22:38)
[2018-03-15] MEDS: POTASSIUM CHLORIDE 20 MEQ TABLET PO SCH ×2 (08:26→21:20)
[2018-03-15] MEDS: SPIRONOLACTONE 25 MG TABLET PO SCH (08:26)
[2018-03-15] MEDS: BUMETANIDE 1 MG TABLET PO SCH (08:26)
[2018-03-15] MEDS: ASPIRIN EC 81 MG TABLET PO SCH (08:26)
[2018-03-15] MEDS: FLUTICASONE 50 MCG NASAL SPRAY 16 GM BOTTLE BOTH NARES SCH (08:30)
[2018-03-15] MEDS: ENOXAPARIN 30 MG/0.3 ML SYRINGE SUBCUT SCH (11:46)
[2018-03-15] MEDS: GENTAMICIN INJ 280 MG in SODIUM CHLORIDE 0.9% 100 ML IV SCH (15:32)
[2018-03-15] MEDS: MONTELUKAST 10 MG TABLET PO SCH (21:19)
[2018-03-15] MEDS: METOPROLOL SUCCINATE XL 25 MG TABLET PO SCH (21:19)
[2018-03-15] MEDS: TAMSULOSIN 0.4 MG CAPSULE PO SCH (21:19)
[2018-03-15] MEDS: ISOSORBIDE MONONITRATE 30 MG TABLET PO SCH (21:19)
[2018-03-15] MEDS: ACETAMINOPHEN/CODEINE 300-30 MG TABLET PO PRN (21:19)
[2018-03-15] MEDS: PRAVASTATIN 20 MG TABLET PO SCH (21:20)
[2018-03-16 04:14] LABS: Basophils % 0.3 % (0.0-0.8); Hematocrit 32.4 VOL% (42.0-52.0); Hemoglobin 10.9 GM/DL (14.0-18.0); Immature Granulocytes % 2.8 %; Immature Granulocytes Absolute 0.21 #; Lymphocytes # 0.4 10*3/uL (1.4-4.0); Lymphocytes % 5.5 % (21.2-54.2); Mean Corpuscular HGB Conc 33.6 GM/DL (32-36); Mean Corpuscular Hemoglobin 31 PG (27-34); Mean Platelet Volume 12.4 FL (9.6-12.0); Monocytes # 0.5 10*3/uL (0.11-0.8); Monocytes % 5.9 % (1.7-12.7); NRBC # 0.02 10*3/uL; Neutrophils # 6.5 10*3/uL (1.4-7.4); Neutrophils % 85.5 % (38.7-73.9); Red Blood Count 3.56 MC/CUMM (3.8-5.5); White Blood Count 7.6 T/CUMM (4-12)
[2018-03-16 04:20] LABS: Platelet Count 93 T/CUMM (130-400)
[2018-03-16 04:56] LABS: Calcium 8.2 MG/DL (8.5-10.1); Potassium 4.2 MMOL/L (3.5-5.1)
[2018-03-16 04:59] LABS: Band Neutrophils 1 % (0-10); Hypochromasia 1+; Lymphocytes 5 % (20-55); Nucleated Red Blood Cells 1 (0-5); Ovalocytes Slight; Platelet Estimate Decreased; Segmented Neutrophils 89 % (50-85); Total Cells Counted 100
[2018-03-16 05:00] LABS: Microcytosis 1+
[2018-03-16] MEDS: MEROPENEM 1,000 MG in SODIUM CHLORIDE 0.9% 100 ML IV SCH ×3 (05:32→22:46)
[2018-03-16] MEDS: LEVOTHYROXINE 25 MCG TABLET PO SCH (05:34)
[2018-03-16] MEDS: POTASSIUM CHLORIDE 20 MEQ TABLET PO SCH ×2 (08:30→21:21)
[2018-03-16] MEDS: BUMETANIDE 1 MG TABLET PO SCH (08:30)
[2018-03-16] MEDS: SPIRONOLACTONE 25 MG TABLET PO SCH (08:30)
[2018-03-16] MEDS: ASPIRIN EC 81 MG TABLET PO SCH (08:31)
[2018-03-16] MEDS: FLUTICASONE 50 MCG NASAL SPRAY 16 GM BOTTLE BOTH NARES SCH (08:31)
[2018-03-16] MEDS: methylPREDNISolone SOD SUC 40 MG/1 ML VIAL IV SCH ×3 (08:31→22:46)
[2018-03-16] MEDS: ENOXAPARIN 30 MG/0.3 ML SYRINGE SUBCUT SCH (10:56)
[2018-03-16] MEDS ORDERED: LEVOFLOXACIN 750 MG TABLET PO SCH (14:00)
[2018-03-16] MEDS: NYSTATIN 500,000 UNIT/5 ML UDCUP SWISH/SWAL SCH ×2 (17:13→21:21)
[2018-03-16] MEDS: TAMSULOSIN 0.4 MG CAPSULE PO SCH (21:21)
[2018-03-16] MEDS: PRAVASTATIN 20 MG TABLET PO SCH (21:21)
[2018-03-16] MEDS: ISOSORBIDE MONONITRATE 30 MG TABLET PO SCH (21:21)
[2018-03-16] MEDS: METOPROLOL SUCCINATE XL 25 MG TABLET PO SCH (21:21)
[2018-03-16] MEDS: MONTELUKAST 10 MG TABLET PO SCH (21:21)
[2018-03-17 05:11] LABS: Basophils % 0.2 % (0.0-0.8); Hematocrit 32.5 VOL% (42.0-52.0); Immature Granulocytes % 4.9 %; Lymphocytes # 0.5 10*3/uL (1.4-4.0); Lymphocytes % 5.5 % (21.2-54.2); Mean Corpuscular HGB Conc 33.8 GM/DL (32-36); Mean Corpuscular Hemoglobin 31 PG (27-34); Mean Corpuscular Volume 90.5 FL (87-102); Mean Platelet Volume 12.1 FL (9.6-12.0); Monocytes # 0.5 10*3/uL (0.11-0.8); Monocytes % 5.6 % (1.7-12.7); NRBC # 0.02 10*3/uL; Neutrophils # 6.9 10*3/uL (1.4-7.4); Neutrophils % 83.8 % (38.7-73.9); Platelet Count 104 T/CUMM (130-400); Red Blood Count 3.59 MC/CUMM (3.8-5.5); White Blood Count 8.2 T/CUMM (4-12)
[2018-03-17 05:31] LABS: Calcium 7.9 MG/DL (8.5-10.1); Osmolality,Calculated 290.8 MOS/KG (273-304); Potassium 4.5 MMOL/L (3.5-5.1)
[2018-03-17] MEDS: LEVOTHYROXINE 25 MCG TABLET PO SCH (06:16)
[2018-03-17] MEDS: MEROPENEM 1,000 MG in SODIUM CHLORIDE 0.9% 100 ML IV SCH (06:16)
[2018-03-17 07:45] VITALS: BP 142/99
[2018-03-17] MEDS: ASPIRIN EC 81 MG TABLET PO SCH (08:42)
[2018-03-17] MEDS: POTASSIUM CHLORIDE 20 MEQ TABLET PO SCH (08:42)
[2018-03-17] MEDS: methylPREDNISolone SOD SUC 40 MG/1 ML VIAL IV SCH (08:42)
[2018-03-17] MEDS: SPIRONOLACTONE 25 MG TABLET PO SCH (08:42)
[2018-03-17] MEDS: NYSTATIN 500,000 UNIT/5 ML UDCUP SWISH/SWAL SCH (08:42)
[2018-03-17] MEDS: BUMETANIDE 1 MG TABLET PO SCH (08:42)
[2018-03-17] MEDS: FLUTICASONE 50 MCG NASAL SPRAY 16 GM BOTTLE BOTH NARES SCH (08:43)
[2018-03-17] MEDS: ENOXAPARIN 30 MG/0.3 ML SYRINGE SUBCUT SCH (09:47)
== END 2018-03-17 11:53 | disposition home or self-care (01) | DRG 871 ==
LOC: N.ED 16:25 → N.EDINP 18:51 → N.2E 19:51 → N.CC 03-13 22:38 → N.TELEN 03-15 09:18
PROVIDERS: ADMIT Family Medicine; ATTEND Family Medicine

== ENCOUNTER 2018-12-27 13:14 | Observation (INO) ==
[2018-12-27 14:17] LABS: Basophils # 0.1 10*3/uL (0.0-0.2); Basophils % 0.6 % (0.0-0.8); Eosinophils % 0.2 % (0.00-10.9); Hematocrit 46.8 VOL% (42.0-52.0); Hemoglobin 14.9 GM/DL (14.0-18.0); Immature Granulocytes % 2.7 %; Immature Granulocytes Absolute 0.32 #; Lymphocytes # 0.5 10*3/uL (1.4-4.0); Lymphocytes % 4.5 % (21.2-54.2); Mean Corpuscular HGB Conc 31.8 GM/DL (32-36); Mean Corpuscular Volume 95.7 FL (87-102); Mean Platelet Volume 10.9 FL (9.6-12.0); Platelet Count 117 T/CUMM (130-400); Red Blood Count 4.89 MC/CUMM (3.8-5.5); Red Cell Distribution Width 15.7 % (9.3-17.3); White Blood Count 11.8 T/CUMM (4-12)
[2018-12-27 14:23] LABS: PT Patient Result 10.7 SECS
[2018-12-27] MEDS ORDERED: ENOXAPARIN 100 MG/ML SYRINGE SUBCUT STA (14:41)
[2018-12-27] MEDS ORDERED: NITROGLYCERIN SL 0.4 MG TABLET SL PRN ×2 (14:41→20:35)
[2018-12-27] MEDS ORDERED: ASPIRIN 325 MG TABLET PO STA (14:41)
[2018-12-27 14:45] LABS: Alanine Aminotransferase 32 U/L (16-61); Albumin 4.2 G/DL (3.4-5.0); Alkaline Phosphatase 77 U/L (45-117); Aspartate Amino Transferase 23 U/L (0-37); Blood Urea Nitrogen 30 MG/DL (7-18); Calcium 9.5 MG/DL (8.5-10.1); Glucose 117 MG/DL (74-106); Osmolality,Calculated 283.5 MOS/KG (273-304); Total Protein 7.1 G/DL (6.4-8.3); Troponin I < 0.015 NG/ML (0.00-0.045)
[2018-12-27 15:12] LABS: Band Neutrophils 2 % (0-10); Lymphocytes 4 % (20-55); Segmented Neutrophils 88 % (50-85); Total Cells Counted 100
[2018-12-27 15:14] LABS: Macrocytosis 1+; Platelet Estimate Normal; Polychromasia Slight
[2018-12-27] MEDS ORDERED: ACETAMINOPHEN 325 MG TABLET PO PRN (17:04)
[2018-12-27] MEDS ORDERED: ONDANSETRON 4 MG/2 ML VIAL IV PRN (17:04)
[2018-12-27] MEDS ORDERED: traMADol 50 MG TABLET PO PRN (20:35)
[2018-12-27] MEDS ORDERED: ONDANSETRON 4 MG TABLET PO PRN (20:35)
[2018-12-27] MEDS ORDERED: FUROSEMIDE 40 MG/4 ML VIAL IV ONE (20:47)
[2018-12-27] MEDS ORDERED: PROBENECID 500 MG TABLET PO SCH (21:00)
[2018-12-27] MEDS ORDERED: METOPROLOL SUCCINATE XL 25 MG TABLET PO SCH (21:00)
[2018-12-27] MEDS ORDERED: TAMSULOSIN 0.4 MG CAPSULE PO SCH (21:00)
[2018-12-27] MEDS ORDERED: MONTELUKAST 10 MG TABLET PO SCH (21:00)
[2018-12-27] MEDS ORDERED: ISOSORBIDE MONONITRATE 30 MG TABLET PO SCH (21:00)
[2018-12-27] MEDS ORDERED: SIMVASTATIN 10 MG TABLET PO SCH (21:00)
[2018-12-27] MEDS: DOCUSATE SODIUM 100 MG CAPSULE PO SCH (21:40)
[2018-12-28 04:42] LABS: Albumin 3.4 G/DL (3.4-5.0); Calcium 8.9 MG/DL (8.5-10.1); Osmolality,Calculated 284.4 MOS/KG (273-304); Risk Ratio 2.31; Thyroid Stimulating Hormone 4.62 uIU/ml (0.358-3.74); Total Protein 5.8 G/DL (6.4-8.3); VLDL CHOLESTEROL 24.6 MG/DL
[2018-12-28] MEDS ORDERED: LEVOTHYROXINE 25 MCG TABLET PO SCH (06:30)
[2018-12-28] MEDS ORDERED: FLUTICASONE 50 MCG NASAL SPRAY 16 GM BOTTLE BOTH NARES SCH (09:00)
[2018-12-28] MEDS ORDERED: SPIRONOLACTONE 25 MG TABLET PO SCH (09:00)
[2018-12-28] MEDS ORDERED: PANTOPRAZOLE 40 MG TABLET PO SCH (09:00)
[2018-12-28] MEDS ORDERED: BUMETANIDE 1 MG TABLET PO SCH (09:00)
[2018-12-28] MEDS ORDERED: PROBENECID 500 MG TABLET PO SCH (09:00)
[2018-12-28] MEDS ORDERED: ASPIRIN EC 81 MG TABLET PO SCH (09:00)
[2018-12-28] MEDS ORDERED: predniSONE 10 MG TABLET PO SCH (09:00)
[2018-12-28] MEDS: DOCUSATE SODIUM 100 MG CAPSULE PO SCH (09:38)
[2018-12-28] MEDS ORDERED: FUROSEMIDE 40 MG/4 ML VIAL IV SCH (10:00)
[2018-12-28 14:00] LABS: Apearance,Urine CLEAR (Clear); Bilirubin,Urine Negative (Negative); Blood, Urine Negative (Negative); Glucose,Urine (UA) Negative (Negative); Ketones,Urine Negative (Negative); Mucus,Urine Occasional /LPF (Occasional); Nitrite,Urine Negative (Negative); Protein,Urine Negative; RBC,Urine 2 /HPF (0-4); Urine Color Straw (Yellow); Urine Specific Gravity 1.005 (1.001-1.035); Urine Urobilinogen < 2.0 EU/DL (0.2-1.0); WBC,Urine 1 /HPF (0-6)
[2018-12-28 16:12] VITALS: BP 100/57
[2018-12-28] MEDS ORDERED: POTASSIUM CHLORIDE 10 MEQ TABLET PO SCH (21:00)
== END 2018-12-28 19:01 | disposition home or self-care (01) ==
LOC: N.ED 13:14 → N.EDINP 13:14 → N.TELES 16:55
PROVIDERS: ADMIT Family Medicine; ATTEND Family Medicine

== ENCOUNTER 2019-01-23 09:32 | Observation (INO) ==
[2019-01-23 10:10] LABS: Basophils # 0.1 10*3/uL (0.0-0.2); Basophils % 0.6 % (0.0-0.8); Eosinophils # 0.1 10*3/uL (0.0-0.87); Eosinophils % 0.8 % (0.00-10.9); Hematocrit 45.9 VOL% (42.0-52.0); Hemoglobin 14.6 GM/DL (14.0-18.0); Immature Granulocytes % 4.1 %; Immature Granulocytes Absolute 0.39 #; Lymphocytes # 1.2 10*3/uL (1.4-4.0); Lymphocytes % 12.9 % (21.2-54.2); Mean Corpuscular HGB Conc 31.8 GM/DL (32-36); Mean Corpuscular Volume 95.4 FL (87-102); Mean Platelet Volume 11.3 FL (9.6-12.0); Neutrophils % 72.6 % (38.7-73.9); Platelet Count 119 T/CUMM (130-400); Red Blood Count 4.81 MC/CUMM (3.8-5.5); Red Cell Distribution Width 14.8 % (9.3-17.3); White Blood Count 9.6 T/CUMM (4-12)
[2019-01-23 10:18] LABS: PT Patient Result 10.8 SECS
[2019-01-23 10:26] LABS: Albumin 3.7 G/DL (3.4-5.0); Osmolality,Calculated 287.4 MOS/KG (273-304); Total Protein 6.2 G/DL (6.4-8.3)
[2019-01-23] MEDS ORDERED: FUROSEMIDE 20 MG/2 ML VIAL IV STA (11:29)
[2019-01-23] MEDS ORDERED: ACETAMINOPHEN 325 MG TABLET PO PRN (11:30)
[2019-01-23] MEDS ORDERED: ONDANSETRON 4 MG/2 ML VIAL IV PRN (11:30)
[2019-01-23] MEDS ORDERED: traMADol 50 MG TABLET PO PRN (13:07)
[2019-01-23] MEDS ORDERED: NITROGLYCERIN SL 0.4 MG TABLET SL PRN (13:07)
[2019-01-23 14:41] LABS: Troponin I < 0.015 NG/ML (0.00-0.045)
[2019-01-23] MEDS: FUROSEMIDE 20 MG/2 ML VIAL IV SCH ×2 (14:48→21:11)
[2019-01-23 16:58] LABS: Troponin I 0.017 NG/ML (0.00-0.045)
[2019-01-23 19:41] LABS: Troponin I < 0.015 NG/ML (0.00-0.045)
[2019-01-23] MEDS: DOCUSATE SODIUM 100 MG CAPSULE PO SCH (20:40)
[2019-01-23] MEDS: TAMSULOSIN 0.4 MG CAPSULE PO SCH (20:40)
[2019-01-23] MEDS: ISOSORBIDE MONONITRATE 30 MG TABLET PO SCH (20:40)
[2019-01-23] MEDS: PROBENECID 500 MG TABLET PO SCH (20:40)
[2019-01-23] MEDS: METOPROLOL SUCCINATE XL 25 MG TABLET PO SCH (20:40)
[2019-01-23] MEDS: MONTELUKAST 10 MG TABLET PO SCH (20:40)
[2019-01-23] MEDS: SIMVASTATIN 10 MG TABLET PO SCH (20:40)
[2019-01-23] MEDS ORDERED: POTASSIUM CHLORIDE 10 MEQ TABLET PO SCH (21:00)
[2019-01-23 22:50] LABS: Troponin I 0.024 NG/ML (0.00-0.045)
[2019-01-24 05:46] LABS: Basophils # 0.1 10*3/uL (0.0-0.2); Basophils % 0.7 % (0.0-0.8); Eosinophils # 0.1 10*3/uL (0.0-0.87); Hematocrit 44.1 VOL% (42.0-52.0); Hemoglobin 14.1 GM/DL (14.0-18.0); Immature Granulocytes % 4.1 %; Immature Granulocytes Absolute 0.38 #; Lymphocytes % 11.3 % (21.2-54.2); Mean Corpuscular Volume 96.1 FL (87-102); Mean Platelet Volume 11.1 FL (9.6-12.0); Monocytes % 9.2 % (1.7-12.7); Neutrophils % 73.7 % (38.7-73.9); Platelet Count 118 T/CUMM (130-400); Red Blood Count 4.59 MC/CUMM (3.8-5.5); Red Cell Distribution Width 15.1 % (9.3-17.3); White Blood Count 9.2 T/CUMM (4-12)
[2019-01-24] MEDS: FUROSEMIDE 20 MG/2 ML VIAL IV SCH (06:07)
[2019-01-24 06:16] LABS: Calcium 8.5 MG/DL (8.5-10.1); Osmolality,Calculated 287.3 MOS/KG (273-304)
[2019-01-24] MEDS: LEVOTHYROXINE 50 MCG TABLET PO SCH (06:16)
[2019-01-24 06:21] LABS: Risk Ratio 2.52; VLDL CHOLESTEROL 25.6 MG/DL
[2019-01-24] MEDS: BUMETANIDE 1 MG TABLET PO SCH ×2 (09:37→16:57)
[2019-01-24] MEDS: PROBENECID 500 MG TABLET PO SCH ×2 (09:37→19:13)
[2019-01-24] MEDS: predniSONE 10 MG TABLET PO SCH (09:37)
[2019-01-24] MEDS: SPIRONOLACTONE 25 MG TABLET PO SCH (09:37)
[2019-01-24] MEDS: POTASSIUM CHLORIDE 20 MEQ TABLET PO SCH ×2 (09:37→20:36)
[2019-01-24] MEDS: DOCUSATE SODIUM 100 MG CAPSULE PO SCH ×2 (09:37→20:36)
[2019-01-24] MEDS: PANTOPRAZOLE 40 MG TABLET PO SCH (09:37)
[2019-01-24] MEDS: ASPIRIN EC 81 MG TABLET PO SCH (09:37)
[2019-01-24] MEDS ORDERED: POTASSIUM CHLORIDE RIDER 10 MEQ in PREMIX 1 EACH IV PRN (11:46)
[2019-01-24] MEDS: POLYETHYLENE GLYCOL POWDER 17 GM PACK PO SCH (20:32)
[2019-01-24] MEDS: SIMVASTATIN 10 MG TABLET PO SCH (20:35)
[2019-01-24] MEDS: MONTELUKAST 10 MG TABLET PO SCH (20:36)
[2019-01-24] MEDS: TAMSULOSIN 0.4 MG CAPSULE PO SCH (20:36)
[2019-01-24] MEDS: ISOSORBIDE MONONITRATE 30 MG TABLET PO SCH (20:36)
[2019-01-24] MEDS: METOPROLOL SUCCINATE XL 25 MG TABLET PO SCH (20:36)
[2019-01-25] MEDS: LEVOTHYROXINE 50 MCG TABLET PO SCH ×2 (06:06→06:08)
[2019-01-25 07:47] VITALS: BP 105/75
[2019-01-25] MEDS: PROBENECID 500 MG TABLET PO SCH (08:35)
[2019-01-25] MEDS: DOCUSATE SODIUM 100 MG CAPSULE PO SCH (08:35)
[2019-01-25] MEDS: ASPIRIN EC 81 MG TABLET PO SCH (08:36)
[2019-01-25] MEDS: PANTOPRAZOLE 40 MG TABLET PO SCH (08:36)
[2019-01-25] MEDS: BUMETANIDE 1 MG TABLET PO SCH (08:36)
[2019-01-25] MEDS: SPIRONOLACTONE 25 MG TABLET PO SCH (08:37)
[2019-01-25] MEDS: POTASSIUM CHLORIDE 20 MEQ TABLET PO SCH (08:37)
[2019-01-25] MEDS: predniSONE 10 MG TABLET PO SCH (08:38)
[2019-01-25] MEDS: POLYETHYLENE GLYCOL POWDER 17 GM PACK PO SCH (08:39)
== END 2019-01-25 11:15 | disposition home or self-care (01) ==
LOC: N.EDINP 09:32 → N.ED 09:32 → N.EDINP 12:36 → N.4E 12:51
PROVIDERS: ADMIT Family Medicine; ATTEND Family Medicine

== ENCOUNTER 2019-09-18 12:17 | Inpatient (IN) ==
[2019-09-18] MEDS ORDERED: ACETAMINOPHEN 325 MG TABLET PO PRN (12:22)
[2019-09-18 14:20] LABS: Basophils # 0.1 10*3/uL (0.0-0.2); Basophils % 0.8 % (0.0-0.8); Eosinophils # 0.1 10*3/uL (0.0-0.87); Eosinophils % 1.4 % (0.00-10.9); Hematocrit 50.7 VOL% (42.0-52.0); Hemoglobin 16.7 GM/DL (14.0-18.0); Immature Granulocytes % 1.5 %; Immature Granulocytes Absolute 0.13 #; Lymphocytes % 12.1 % (21.2-54.2); Mean Corpuscular HGB Conc 32.9 GM/DL (32-36); Mean Corpuscular Volume 92.2 FL (87-102); Mean Platelet Volume 11.5 FL (9.6-12.0); Monocytes % 9.5 % (1.7-12.7); Neutrophils % 74.7 % (38.7-73.9); Platelet Count 120 T/CUMM (130-400); White Blood Count 8.6 T/CUMM (4-12)
[2019-09-18 14:44] LABS: Albumin 3.7 G/DL (3.4-5.0); Bilirubin,Total 2.7 MG/DL (0.2-1.0); Calcium 9.6 MG/DL (8.5-10.1); Osmolality,Calculated 270.4 MOS/KG (273-304); Total Protein 7.1 G/DL (6.4-8.3)
[2019-09-18] MEDS: LEVOFLOXACIN INJ 500 MG in PREMIX 1 EACH IV SCH (15:05)
[2019-09-18] MEDS: SODIUM CHLORIDE 0.45% 1,000 ML IV SCH (15:05)
[2019-09-18 15:35] LABS: Apearance,Urine CLEAR (Clear); Bilirubin,Urine Negative (Negative); Blood, Urine Negative (Negative); Glucose,Urine (UA) Negative (Negative); Hyaline Casts,Urine 59 /LPF (0-3); Ketones,Urine Negative (Negative); Mucus,Urine Occasional /LPF (Occasional); Nitrite,Urine Negative (Negative); Protein,Urine Negative; RBC,Urine 2 /HPF (0-4); Squamous Epithelial Cell,Urine Occasional /HPF (0-10); WBC,Urine 8 /HPF (0-6)
[2019-09-18 15:37] LABS: Urine Color Dark Yellow (Yellow)
[2019-09-18] MEDS: traMADol 50 MG TABLET PO SCH (21:32)
[2019-09-18] MEDS: TAMSULOSIN 0.4 MG CAPSULE PO SCH (21:32)
[2019-09-18] MEDS: ENOXAPARIN 40 MG/0.4 ML SYRINGE SUBCUT SCH (21:34)
[2019-09-18] MEDS: DOCUSATE SODIUM 100 MG CAPSULE PO SCH (21:39)
[2019-09-19 05:52] LABS: Calcium 8.6 MG/DL (8.5-10.1); Osmolality,Calculated 268.4 MOS/KG (273-304)
[2019-09-19] MEDS: PANTOPRAZOLE 40 MG TABLET PO SCH (05:53)
[2019-09-19] MEDS: SODIUM CHLORIDE 0.45% 1,000 ML IV SCH ×3 (07:37→22:09)
[2019-09-19] MEDS: ONDANSETRON 4 MG/2 ML VIAL IV PRN (07:55)
[2019-09-19] MEDS: LEVOFLOXACIN INJ 500 MG in PREMIX 1 EACH IV SCH ×2 (07:57→08:47)
[2019-09-19] MEDS: DOCUSATE SODIUM 100 MG CAPSULE PO SCH ×2 (08:47→20:59)
[2019-09-19] MEDS: traMADol 50 MG TABLET PO SCH ×3 (08:50→20:59)
[2019-09-19] MEDS: POTASSIUM CHLORIDE RIDER 10 MEQ in PREMIX 1 EACH IV PRN ×5 (09:18→17:45)
[2019-09-19] MEDS: TAMSULOSIN 0.4 MG CAPSULE PO SCH (21:00)
[2019-09-19] MEDS: ENOXAPARIN 40 MG/0.4 ML SYRINGE SUBCUT SCH (21:00)
[2019-09-20] MEDS: ONDANSETRON 4 MG/2 ML VIAL IV PRN ×2 (05:50→10:52)
[2019-09-20] MEDS: PANTOPRAZOLE 40 MG TABLET PO SCH (05:52)
[2019-09-20] MEDS ORDERED: PROMETHAZINE 25 MG TABLET PO PRN (07:31)
[2019-09-20] MEDS ORDERED: HYDROmorphone 2 MG/1 ML VIAL IV PRN (07:31)
[2019-09-20] MEDS: LEVOFLOXACIN INJ 500 MG in PREMIX 1 EACH IV SCH (08:16)
[2019-09-20] MEDS: traMADol 50 MG TABLET PO SCH (08:17)
[2019-09-20] MEDS: DOCUSATE SODIUM 100 MG CAPSULE PO SCH (08:17)
[2019-09-20] MEDS: POTASSIUM CHLORIDE RIDER 10 MEQ in PREMIX 1 EACH IV PRN ×2 (10:57→12:55)
[2019-09-20 11:44] VITALS: BP 109/61
[2019-09-20] MEDS ORDERED: HYDROmorphone 2 MG TABLET PO PRN (12:07)
[2019-09-20] MEDS ORDERED: POTASSIUM CHLORIDE RIDER 100 ML IV ONE (14:22)
[2019-09-24 15:01] LABS: Metanephrine, Free 0.25 nmol/L (<0.50); Normetanephrine, Free 1.1 nmol/L (<0.90)
== END 2019-09-20 15:34 | disposition expired | DRG 644 ==
LOC: N.2E 12:47
PROVIDERS: ADMIT Family Medicine; ATTEND Family Medicine